=== PATIENT | female | born 1985 | race Caucasian/White ===

== ENCOUNTER → 2021-03-07 01:22 | Outpatient (CLI) | payer OTHER, SELFPAY ==
[2021-03-07 20:24] LABS: SARS-CoV-2 RNA PCR Positive
== END | disposition home or self-care (01) ==
PROVIDERS: PCP Family Medicine; Visit Provider Family Medicine
DX: U07.1 COVID-19 (principal)
CPT/HCPCS: C9803; U0003; U0005

== ENCOUNTER 2024-08-20 00:36 | Day surgery (SDC) | payer OTHER, SELFPAY ==
[2024-08-04 12:59] VITALS: BMI 26.6
[2024-08-20 07:51] VITALS: BP 128/90; PULSE 78; RESP 16; TEMP 36.3; O2SAT 98
[2024-08-20 08:01] LABS: BEDSIDEPREGUCG Negative (Negative)
[2024-08-20] MEDS: LACTATED RINGERS 1,000 ML 150 ML IV CONT (08:03)
--- NOTE | 2024-08-20 08:48 | WPDANESEPPF ---
Anes - Initial Pre Proc Eval Procedure: Operation Date: 08/20/24 09:00 Proposed Procedures p Screening Colonoscopy - Xu Mendez MD Date/Time: 08/20/24 08:48 Surgeon: Xu Mendez MD Pre Op Diagnosis: screening malignant neoplasm of colon Patient Data Age: 38 Gender: F Height: 1.75 m Weight: 84.3 kg Last Vital Signs Temp 97.4 F L 08/20/24 07:51 Pulse 78 08/20/24 07:51 Resp 16 08/20/24 07:51 BP 128/90 08/20/24 07:51 Pulse Ox 98 08/20/24 07:51 O2 Del Method Room Air 08/20/24 07:51 Allergies Allergy/AdvReac Type Severity Reaction Status Date / Time No Known Allergies Allergy Verified 08/20/24 07:50 Home Medications ?Medication ?Instructions ?Recorded ?Confirmed ?Type ciclopirox 8 % topical solution 1 applic topical BID 4 weeks #6.6 05/05/24 08/04/24 Rx mL lisinopril 10 mg tablet 10 mg PO DAILY #90 tabs 05/05/24 08/20/24 Rx Laboratory Tests 08/20/24 07:57 POC Urine HCG, Qual Negative (Negative) Patient hx anesthesia problems: none Family hx anesthesia problems: none Results Review: All pre-operative results and documents have been reviewed as part of the pre-operative evaluation. [facility] Past Medical History Medical History induced hypertension COVID Family History Family History Sibling Family history of hypercholesterolemia Father Hypertension Sibling Colon polyp, Onset Age: 35 Social History Social History Smoking status: Never smoker Alcohol intake: current Drinks per week: 2 Substance use: never Substance use type: does not use Lack of Transportation: No Lack of Food: Never True Current Housing: I Have Housing Concerned About Future Housing: No Difficulty Paying Gas/Electric Bills: No Difficulty Paying for Meds: No Currently Unemployed: No Education: Bachelor's Degree Difficulty w/ Childcare or Family Care: No Living arrangements: alone Spiritual care concerns: No Anes - Eval Final PreProcedure Day of Procedure 08/20/24 08:48 Patient weight: overweight Lungs: normal air movement Airway: Mallampati scale class II Neurological: alert and oriented Last oral intake: >/= 8 hours ASA classification: II Emergent: no Anesthetic plan: proceed Anesthesia type and monitoring: general GIVS and standard monitoring Results Review: All pre-operative results and documents have been reviewed as part of the pre-operative evaluation. HTN. Otherwise good health. Informed Consent: The patient's anesthetic plan and its attendant risks and benefits were discussed with the patient/family/POA. Questions were solicited and answers provided to the satisfaction of the patient/family/POA.
--- NOTE | 2024-08-20 08:56 | PM.IMHP ---
H&P: HPI History of Present Illness Date/Time: 08/20/24 08:56 Chief Complaint: family history of colon polyps Narrative: this is the 1st colonoscopy in this patient who has a sister who had adenomas in her 30s. She is asymptomatic from a GI standpoint. Review of Systems Review of Systems: All systems reviewed & are unremarkable except as noted in HPI and below PMFSH Past Medical History Medical History induced hypertension COVID Family History Family History Sibling Family history of hypercholesterolemia Father Hypertension Sibling Colon polyp, Onset Age: 35 Social History Social History Smoking status: Never smoker Alcohol intake: current Drinks per week: 2 Substance use: never Substance use type: does not use Lack of Transportation: No Lack of Food: Never True Current Housing: I Have Housing Concerned About Future Housing: No Difficulty Paying Gas/Electric Bills: No Difficulty Paying for Meds: No Currently Unemployed: No Education: Bachelor's Degree Difficulty w/ Childcare or Family Care: No Living arrangements: alone Spiritual care concerns: No Meds Home Medications and Allergies Home Medications ?Medication ?Instructions ?Recorded ?Confirmed ?Type ciclopirox 8 % topical solution 1 applic topical BID 4 weeks #6.6 05/05/24 08/04/24 Rx mL lisinopril 10 mg tablet 10 mg PO DAILY #90 tabs 05/05/24 08/20/24 Rx Allergies Allergy/AdvReac Type Severity Reaction Status Date / Time No Known Allergies Allergy Verified 08/20/24 07:50 Vital Signs Vital Signs - 24 hr 08/20/24 07:51 Temperature 97.4 F L Pulse Rate 78 Respiratory Rate 16 Blood Pressure 128/90 Pulse Oximetry 98 Oxygen Delivery Room Air Exam Const: General: cooperative and healthy appearing Resp: Effort & Inspection: normal respiratory effort and able to speak in complete sentences Auscultation: clear to auscultation bilaterally Cardio: Rate: regular rate Rhythm: regular rhythm GI: Inspection: normal to inspection GI Palp: No No hepatosplenomegaly present Auscultation: normal bowel sounds Rectal Exam: deferred Skin: General skin exam: normal color Psych: Appearance: grossly normal Mental Status: mental status grossly normal Assessment and Plan Assessment and plan (1) Family history of polyps in the colon: Code(s): Z83.719 - Family history of colon polyps, unspecified Status: Acute Assessment and Plan: The patient is deemed a good candidate for the procedure. Consent signed. Will proceed.
[2024-08-20 09:26] VITALS: BP 122/70; PULSE 71; RESP 24; O2SAT 100
[2024-08-20 09:36] VITALS: BP 120/82; PULSE 68; RESP 21; O2SAT 100
[2024-08-20 09:46] VITALS: BP 134/80; PULSE 64; RESP 20; O2SAT 100
== END 2024-08-20 09:58 | disposition home or self-care (01) ==
PROVIDERS: Anesthesiology; PCP Family Medicine; Visit Provider Internal Medicine Gastroenterology
PROC: 0DJD8ZZ Inspection of Lower Intestinal Tract, Via Natural or Artificial Opening Endoscopic (ICD-10-PCS; CPT 45378; principal; 2024-08-20 09:00)
DX: Z12.11 Encounter for screening for malignant neoplasm of colon (principal); Z83.719 Family history of colon polyps, unspecified
CPT/HCPCS: 45378; J2003; J2704; J7120